=== PATIENT | male | born 1990 | race Two or more races ===

== ENCOUNTER 2018-12-07 11:24 | Emergency (ER) | payer MEDICAID, OTHER ==
[~2018-12-07] VITALS: Ht 175.3 cm; Wt 72.1 kg
[2018-12-07 11:31] VITALS: BP 136/89
[2018-12-07] MEDS ORDERED: IBUPROFEN 400 MG TABLET PO ONE (12:00)
[2018-12-07] MEDS ORDERED: IBUPROFEN 400 MG TABLET ONE (12:30)
== END 2018-12-07 12:40 | disposition home or self-care (01) ==
LOC: ER 11:24
DX: R05 Cough (principal); R09.81 Nasal congestion; R50.9 Fever, unspecified; J02.9 Acute pharyngitis, unspecified; R53.81 Other malaise; F17.200 Nicotine dependence, unspecified, uncomplicated
CPT/HCPCS: 86403-TC; 87070-TC